=== PATIENT | male | born 1955 | race Caucasian/White ===

== ENCOUNTER 2022-03-29 11:33 | Inpatient (IN) | payer MEDICARE ==
[~2022-03-29] VITALS: Ht 190.5 cm; Wt 96.6 kg
[2022-03-29] MEDS ORDERED: ACETAMINOPHEN500 M4 PO (12:54)
[2022-03-29] MEDS ORDERED: MILK OF MA400 MG/52 PO (12:58)
[2022-03-29] MEDS ORDERED: VENTOLIN 02.5 MG/3 M INH (13:00)
[2022-03-29] MEDS ORDERED: ELIQUIS5 M1 PO (13:04)
[2022-03-29] MEDS ORDERED: DULCOLAX10 M1 R (13:05)
[2022-03-29] MEDS ORDERED: CALAMINE T (13:07)
[2022-03-29] MEDS ORDERED: DICYCLOMINE HYD20 MG PO (13:08)
[2022-03-29] MEDS ORDERED: COLACE100 MG PO (13:09)
[2022-03-29] MEDS ORDERED: NATURE'S BLEND F1 MG PO (13:10)
[2022-03-29] MEDS ORDERED: NEURONTIN300 MG PO (13:11)
[2022-03-29] MEDS ORDERED: MUCINEX1200 M1 PO (13:13)
[2022-03-29] MEDS ORDERED: VISTARIL50 MG PO (13:14)
[2022-03-29] MEDS ORDERED: IPRATROPIU0.2 MG/1 M INH (13:17)
[2022-03-29] MEDS ORDERED: LOPERAMIDE HCL2 MG PO (13:18)
[2022-03-29] MEDS ORDERED: NICODERM CQ1 EAC2 T (13:20)
[2022-03-29] MEDS ORDERED: ONDANSETRON HYDR8 MG PO (13:22)
[2022-03-29] MEDS ORDERED: PHENOBARBITAL64.8 MG PO (13:28)
[2022-03-29] MEDS ORDERED: NATURE'S BLEND100 M2 PO (13:29)
[2022-03-29] MEDS ORDERED: TRAZODONE100 MG PO (13:30)
[2022-03-29] MEDS ORDERED: EFFEXOR-XR37.5 MG PO (13:31)
[2022-03-30 01:25] VITALS: BP 107/65
[2022-03-30 07:30] LABS: BASO % 0.2 % (0.0-1.0); EOS # 0.3 10*3/uL (0.0-0.4); EOS % 3.9 % (1.0-4.0); HEMATOCRIT 36.9 % (42.0-52.0); LYMPH # 1.4 10*3/uL (1.3-4.4); MEAN CELL VOLUME 106.3 fl (80.0-94.0); MEAN CORPUSCULAR HGB CONC 33.9 g/dl (33.0-37.0); MEAN PLATELET VOLUME 10.1 fl (9.6-12.3); MONO # 0.5 10*3/uL (0.1-1.0); MONO % 8.4 % (3.0-9.0); NEUT # 4.2 10*3/uL (2.3-7.9); PLATELET COUNT AUTOMATED 58 10*3/uL (130-400); RED BLOOD COUNT 3.47 10*6/uL (4.50-5.90); RED CELL DISTRI WIDTH 14.3 % (0-14.5); WHITE BLOOD COUNT 6.4 10*3/uL (4.8-10.8)
[2022-03-30 07:41] VITALS: BP 108/66
[2022-03-30 07:56] LABS: ALKALINE PHOSPHATASE 76 U/L (45-117); BUN 19 mg/dl (7-24); CHLORIDE 103 mmol/L (98-107); CHOLESTEROL 161 mg/dL (<200); CREATININE 0.81 mg/dL (0.70-1.30); LDL CHOLESTEROL 40 mg/dL (9-159); POTASSIUM 3.5 mmol/L (3.5-5.1); SGOT/AST 43 IU/L (3-35); SGPT/ALT 34 U/L (12-78); SODIUM 142 mmol/L (136-145); TRIGLYCERIDES 179 mg/dl (<150)
[2022-03-30 08:10] LABS: TOTAL PROTEIN 6.2 gm/dL (6.4-8.2)
[2022-03-30 12:33] LABS: VITAMIN D, 25-HYDROXY 31.9 ng/mL (30-100)
[2022-03-30 12:47] LABS: BILIRUBIN 1+ (Negative); BLOOD Negative (Negative); CLARITY Clear (Clear); COLOR Dark Yellow (Yellow); GLUCOSE Negative (Negative); KETONE Trace (Negative); LEUKO ESTERASE 1+ (Negative); NITRITE Negative (Negative); PH 6.5 (4.5-8.0); SPECIFIC GRAVITY 1.025 (1.001-1.030)
[2022-03-30 12:55] LABS: BACTERIA 2+; EPITHELIAL CELLS 0-2; MUCOUS 3+
[2022-03-30 12:56] LABS: CALCIUM OXALATE CRYSTALS 1+
[2022-03-30 20:00] VITALS: BP 110/60
[2022-03-31 07:27] VITALS: BP 105/75
[2022-03-31] MEDS ORDERED: NYSTATIN CREAM15 GM T (13:30)
[2022-03-31 19:57] VITALS: BP 110/62
[2022-04-01 07:58] VITALS: BP 108/57
[2022-04-01] MEDS ORDERED: MIRTAZAPINE15 M2 PO (09:59)
[2022-04-01] MEDS ORDERED: VITAMIN D350 MC2 PO (09:59)
[2022-04-01] MEDS ORDERED: VITAMIN B-1100 M1 PO (09:59)
[2022-04-01] MEDS ORDERED: NATURE'S BLEND F1 MG PO (09:59)
[2022-04-01] MEDS ORDERED: LORAZEPAM0.5 M1 PO (09:59)
== END 2022-04-01 14:54 | disposition home or self-care (01) | DRG 885 ==
LOC: 3N 11:33
PROVIDERS: ADMIT Psychiatry & Neurology Psychiatry; ATTEND Psychiatry & Neurology Psychiatry
DX: F33.2 Major depressive disorder, recurrent severe without psychotic features (principal); E43 Unspecified severe protein-calorie malnutrition; I82.509 Chronic embolism and thrombosis of unspecified deep veins of unspecified lower extremity; E72.20 Disorder of urea cycle metabolism, unspecified; N39.0 Urinary tract infection, site not specified; D69.6 Thrombocytopenia, unspecified; F10.20 Alcohol dependence, uncomplicated; E78.1 Pure hyperglyceridemia; F17.210 Nicotine dependence, cigarettes, uncomplicated; D53.9 Nutritional anemia, unspecified; J44.9 Chronic obstructive pulmonary disease, unspecified; Z82.49 Family history of ischemic heart disease and other diseases of the circulatory system; Z88.8 Allergy status to other drugs, medicaments and biological substances; Z68.26 Body mass index [BMI] 26.0-26.9, adult